=== PATIENT | female | born 1990 | race Caucasian/White ===

== ENCOUNTER 2021-08-01 09:34 | Emergency (ER) | payer BC ==
[~2021-08-01] VITALS: Ht 162.6 cm; Wt 77.2 kg
[2021-08-01] MEDS ORDERED: NAPROXEN 500 MG TABLET PO STA (10:48)
[2021-08-01] MEDS ORDERED: HYDROcodone/APAP 5/325MG 1 TAB TABLET PO ONE (11:00)
--- NOTE | 2021-08-01 11:09 | RAD ---
KNEE 4 VIEWS LEFT Clinical Indication: Reason: pain / : Comparison: None. Findings: There is no acute fracture or dislocation. The tricompartmental joint spaces are maintained. The mine ralization is normal. The patella is in anatomic position on lateral view. No patellar tilt or sublux ation is seen on the sunrise view. Question mild infrapatellar soft tissue swelling. There is no join t effusion. IMPRESSION: No acute fracture. Electronically signed by: Juan Carlos Caldwell MD (08/01/2021 11:07 AM) [id number]
--- NOTE | 2021-08-01 11:14 | RAD ---
LEFT ANKLE AP, LATERAL, OBLIQUE Clinical Indication: Reason: pain / Comparison: None. Findings: There is no acute fracture or dislocation. Mineralization is normal. The ankle mortise is intact. There is moderate lateral and anterior ankle soft tissue swelling. IMPRESSION: 1. No acute fracture. 2. Soft tissue swelling. Electronically signed by: Juan Carlos Caldwell MD (08/01/2021 11:11 AM) [id number]
[2021-08-01 12:24] VITALS: BP 131/91
--- NOTE | 2021-08-01 12:27 | PHYS DOC ---
Past Medical History Past Surgical History: No Surgical History Smoking Status: Current Every Day Smoker Alcohol Use: Occasionally General Adult EDM: Chief Complaint: ANKLE PROBLEM HPI: HPI: Patient is a 30 year old female who presents to the ED today complaining of 8 out of 10 left knee and left ankle pain that began yesterday after she fell at [email or web address] and [employer] yesterday. Patient denies any loss of consciousness. Denies hitting her head on the ground. Describes the pain as throbbing and intermittent worse on weightbearing. States immobilization is helping with the pain. Review of Systems: Review of Systems: Constitutional: Denies fever or chills. [] Musculoskeletal: Reports left knee and left ankle pain. Denies back pain Integument: Denies rash. [] Neurologic: Denies headache, focal weakness or sensory changes. [] ] Psychiatric: Denies depression or anxiety. [] Heart Score: C/O Chest Pain: N/A Risk Factors: Risk Factors: DM, Current or recent (<one month) smoker, HTN, HLP, family history of CAD, obesity. Risk Scores: Score 0 - 3: 2.5% MACE over next 6 weeks - Discharge Home Score 4 - 6: 20.3% MACE over next 6 weeks - Admit for Clinical Observation Score 7 - 10: 72.7% MACE over next 6 weeks - Early Invasive Strategies Current Medications: Current Medications Medications (Trade) Dose Ordered Sig/Danuta Start Time Stop Time Status Last Admin Dose Admin Acetaminophen/ Hydrocodone Bitart (Lortab 5/325) 1 tab 1X ONCE 08/01/21 11:00 08/01/21 11:01 DC 08/01/21 11:00 1 TAB Naproxen (Naprosyn) 500 mg 1X STAT 08/01/21 10:48 08/01/21 10:50 DC 08/01/21 10:59 500 MG Allergies: Allergies: Allergies Coded Allergies Type Severity Reaction Last Updated Verified No Known Drug Allergies 08/01/21 No Physical Exam: PE: Constitutional: Well developed, well nourished, no acute distress, non-toxic appearance. [] Skin: Warm, dry, no erythema, no rash. [] Back: No tenderness, no CVA tenderness. [] Extremities: Left anterior knee with bruising, no obvious deformity to the left lower extremity. Moderate soft tissue swelling noted on the left ankle. Tenderness on palpation of the left anterior knee and the left lateral ankle. Full range of motion to the left knee, negative Sayda sign, negative Rohan sign, negative anterior posterior drawer sign. +2 left pedal pulse. Range of motion to the left ankle. No navicular bone tenderness on the left foot. No tenderness of the base of the fifth metatarsal of the left foot. Cap refill less than 2 seconds to left toes. Neurologic: Alert and oriented X 3, normal motor function, normal sensory function, no focal deficits noted. [] Psychologic: Affect normal, judgement normal, mood normal. [] Current Patient Data: Vital Signs: Vital Signs Date Time Temp Pulse Resp B/P (MAP) Pulse Ox O2 Delivery O2 Flow Rate FiO2 08/01/21 11:02 99 16 121/76 (91) 98 Room Air 08/01/21 09:39 98.4 98.4 EKG: EKG: [] Radiology/Procedures: Radiology/Procedures: []PROCEDURE: KNEE LEFT 4V KNEE 4 VIEWS LEFT Clinical Indication: Reason: pain / : Comparison: None. Findings: There is no acute fracture or dislocation. The tricompartmental joint spaces are maintained. The mineralization is normal. The patella is in anatomic position on lateral view. No patellar tilt or subluxation is seen on the sunrise view. Question mild infrapatellar soft tissue swelling. There is no joint effusion. IMPRESSION: No acute fracture. Electronically signed by: Juan Carlos Paez MD (08/01/2021 11:07 AM) [id number] DICTATED and SIGNED BY: JUAN CARLOS PAEZ MD DATE: 08/01/21 [id number] 0 PROCEDURE: ANKLE LEFT 3V LEFT ANKLE AP, LATERAL, OBLIQUE Clinical Indication: Reason: pain / Comparison: None. Findings: There is no acute fracture or dislocation. Mineralization is normal. The ankle mortise is intact. There is moderate lateral and anterior ankle soft tissue swelling. IMPRESSION: 1. No acute fracture. 2. Soft tissue swelling. Electronically signed by: Juan Carlos Paez MD (08/01/2021 11:11 AM) [id number] DICTATED and SIGNED BY: JUAN CARLOS PAEZ MD DATE: 08/01/21 [id number] 0 Course & Med Decision Making: Course & Med Decision Making Pertinent Labs and Imaging studies reviewed. (See chart for details) This is a 30-year-old female patient presented to the ED today complaining of left knee and left ankle pain, symptoms began after she fell yesterday. Left knee and left ankle x-rays interpreted by radiologist are negative for any acute findings. Heber bandage and Aircast applied to the left ankle by the ED RN, Heber bandage applied to the left knee by the ED RN. Crutches provided. Neurovascular exam done by me post splinting is normal. Ice elevation encouraged. Follow-up with orthopedic doctor in 1 week if pain persists Dragon Disclaimer: Dragon Disclaimer: This electronic medical record was generated, in whole or in part, using a voice recognition dictation system. Departure Departure Impression: Primary Impression: Fall Qualified Codes: W19.XXXA - Unspecified fall, initial encounter Additional Impressions: Left ankle sprain Qualified Codes: S93.402A - Sprain of unspecified ligament of left ankle, initial encounter Contusion of left knee Qualified Codes: S80.02XA - Contusion of left knee, initial encounter Disposition: HOME / SELF CARE / HOMELESS Condition: STABLE Referrals: NO PCP (PCP) KATHLEEN GRANADOS Jr. DO follow up in 1-2 weeks Patient Instructions: Ankle Sprain, Contusion, [id number] Additional Instructions: You were evaluated in the emergency room after falling. Your left knee and left ankle x-rays are negative for any acute findings. Try to ice and elevate the affected extremities. Please take [id number] pain relievers especially NSAIDs like ibuprofen as needed for pain. Follow-up with the provided orthopedic doctor in 1 week if pain persist VAUHGN HARRIS APRN Aug 01, 2021 12:27
== END 2021-08-01 12:55 | disposition home or self-care (01) ==
LOC: ER 09:34
DX: S93.402A Sprain of unspecified ligament of left ankle, initial encounter (principal); S80.02XA Contusion of left knee, initial encounter; F17.200 Nicotine dependence, unspecified, uncomplicated; W18.39XA Other fall on same level, initial encounter; Y93.89 Activity, other specified; Y92.89 Other specified places as the place of occurrence of the external cause; Y99.8 Other external cause status
CPT/HCPCS: 29515; 73564; 73610; 99284